=== PATIENT | male | born 1940 | race Caucasian/White ===

== ENCOUNTER → 2016-08-26 | Outpatient (CLI) | payer OTHER ==
[~2016-08-26] MED LIST: ASPIR-LOW81 MG PO; ATORVASTATIN CA40 MG PO; ELIQUIS 2.5 MG2.5 MG PO; HYDROCHLOROTHIA25 MG PO; HYDROCODON-ACE1 EAC6 PO; LEVOTHYROXINE75 MCG PO; LISINOPRIL40 MG PO; OMEPRAZOLE20 MG PO; PERCOCET 10-321 EACH PO; TENORMIN 50 MG50 MG PO
[2016-08-26 10:16] LABS: HEMOGLOBIN 13.1 gm/dl (14.0-17.5); RED BLOOD COUNT 4.18 M/UL (4.20-5.50); WHITE BLOOD COUNT 6.6 K/UL (4.5-11.0)
== END ==
LOC: OPSV2 08-19 10:00
PROVIDERS: Orthopaedic Surgery
DX: Z01.812 Encounter for preprocedural laboratory examination (principal); M17.11 Unilateral primary osteoarthritis, right knee; I10 Essential (primary) hypertension; Z88.5 Allergy status to narcotic agent
CPT/HCPCS: 36415; 80048; 81001; 85027; 87081

== ENCOUNTER → 2016-09-08 | Outpatient (CLI) | payer OTHER | LOC: LAB 10:29 | DX: Z01.812 Encounter for preprocedural laboratory examination (principal) | CPT/HCPCS: 36415; 80051; 82565; 84520; 86850; 86900; 86901 ==